=== PATIENT | female | born 1975 | race Caucasian/White ===

== ENCOUNTER 2019-11-12 12:31 | Emergency (ER) | payer BC ==
--- NOTE | 2019-11-12 12:59 | EDM.PDOC ---
ED HPI GENERAL MEDICAL PROBLEM - General Chief Complaint: Chest Pain Stated Complaint: CHEST PAIN Time Seen by Provider: 11/12/19 12:54 Source of Information: Reports: Patient History Limitations: Reports: No Limitations - History of Present Illness INITIAL COMMENTS - FREE TEXT/NARRATIVE: 44-year-old female presents the emergency room chief complaint of chest pain for an hour scaled at 3/10 with pain rating down her left arm. Patient states she threw up with the pain subsided patient is pain-free. Patient has no past medical history of cardiac disease patient does not smoke and she is on no medications. Onset: Today Duration: Hour(s): (2), Resolved Prior to Arrival Location: Reports: Chest Quality: Reports: Pressure Severity: Moderate Improves with: Reports: None, Medication Worsens with: Reports: None Associated Symptoms: Reports: No Other Symptoms chest pain Pain Score (Numeric/FACES): 3 - Related Data Allergies Allergy/AdvReac Type Severity Reaction Status Date / Time No Known Allergies Allergy Verified 11/12/19 12:37 Home Meds: Home Meds . [No Known Home Meds] 11/12/19 [History] Past Medical History - Infectious Disease History Infectious Disease History: Reports: None, Acinetobacter ([facility]), Chicken Pox - Past Surgical History Musculoskeletal Surgical History: Reports: Other (See Below) Other Musculoskeletal Surgeries/Procedures:: knee surgery Social & Family History - Family History Family Medical History: Noncontributory - Tobacco Use Smoking Status *Q: Never Smoker - Recreational Drug Use Recreational Drug Use: No ED ROS GENERAL - Review of Systems Review Of Systems: See Below Constitutional: Reports: No Symptoms HEENT: Reports: No Symptoms Respiratory: Reports: No Symptoms Cardiovascular: Reports: Chest Pain Endocrine: Reports: No Symptoms GI/Abdominal: Reports: No Symptoms : Reports: No Symptoms Musculoskeletal: Reports: No Symptoms Skin: Reports: No Symptoms Neurological: Reports: No Symptoms Psychiatric: Reports: No Symptoms Hematologic/Lymphatic: Reports: No Symptoms Immunologic: Reports: No Symptoms ED EXAM, GENERAL - Physical Exam Exam: See Below Exam Limited By: No Limitations General Appearance: Alert, WD/WN, No Apparent Distress Eye Exam: Bilateral Eye: Normal Fundi, Normal Inspection Ear Exam: Bilateral Ear: Auricle Normal, Canal Normal Nose: Normal Inspection, Normal Mucosa, No Blood Throat/Mouth: Normal Inspection, Normal Lips, Normal Teeth Neck: Normal Inspection Respiratory/Chest: No Respiratory Distress Cardiovascular: Normal Peripheral Pulses, Regular Rate, Rhythm GI/Abdominal: Normal Bowel Sounds, Soft, Non-Tender (Female) Exam: Normal External Exam Rectal (Female) Exam: Deferred Back Exam: Normal Inspection, Full Range of Motion Course - Vital Signs Text/Narrative:: She has been pain-free in the emergency room. Her troponin is elevated 2.08. EKG is normal. I discussed the case with the hospitalist he wants me to send the patient to my not for cardiology . Patient has been accepted by Dr. Panfilo Edouard She is stable for transfer/ground ambulance Last Recorded V/S: Last Vital Signs Temp 97.0 F 11/12/19 12:37 Pulse 100 11/12/19 12:37 Resp 18 11/12/19 12:37 BP 136/69 11/12/19 12:37 Pulse Ox 99 11/12/19 12:37 - Orders/Labs/Meds Orders: Active Orders 24 hr Category Date Time Status EKG Documentation Completion [RC] STAT Care 11/12/19 13:07 Active Labs: Laboratory Tests 11/12/19 11/12/19 11/12/19 Range/Units 12:37 12:37 12:37 WBC 11.37 H (4.0-11.0) K/uL RBC 4.89 (4.30-5.90) M/uL Hgb 14.4 (12.0-16.0) g/dL Hct 45.0 (36.0-46.0) % MCV 92.0 (80.0-98.0) fL MCH 29.4 (27.0-32.0) pg MCHC 32.0 (31.0-37.0) g/dL RDW Std Deviation 42.2 (28.0-62.0) fl RDW Coeff of [place] 13 (11.0-15.0) % Plt Count 263 (150-400) K/uL MPV 11.80 (7.40-12.00) fL Neut % (Auto) 72.0 (48.0-80.0) % Lymph % (Auto) 19.4 (16.0-40.0) % [place] % (Auto) 7.4 (0.0-15.0) % Eos % (Auto) 0.9 (0.0-7.0) % Baso % (Auto) 0.3 (0.0-1.5) % Neut # (Auto) 8.2 H (1.4-5.7) K/uL Lymph # (Auto) 2.2 (0.6-2.4) K/uL [place] # (Auto) 0.8 (0.0-0.8) K/uL Eos # (Auto) 0.1 (0.0-0.7) K/uL Baso # (Auto) 0.0 (0.0-0.1) K/uL Nucleated RBC % 0.0 /100WBC Nucleated RBCs # 0 K/uL Sodium 140 (136-145) mmol/L Potassium 3.8 (3.5-5.1) mmol/L Chloride 101 (98-107) mmol/L Carbon Dioxide 28.0 (21.0-32.0) mmol/L BUN 14 (7.0-18.0) mg/dL Creatinine 0.9 (0.6-1.0) mg/dL Est Cr Clr Drug Dosing 75.45 mL/min Estimated GFR (MDRD) > 60.0 ml/min Glucose 109 H (74-106) mg/dL Calcium 9.6 (8.5-10.1) mg/dL Total Bilirubin 0.5 (0.2-1.0) mg/dL AST 16 (15-37) IU/L ALT 25 (14-63) IU/L Alkaline Phosphatase 56 (46-116) U/L Troponin I 0.082 H* (0.000-0.056) ng/mL Total Protein 7.6 (6.4-8.2) g/dL Albumin 4.0 (3.4-5.0) g/dL Globulin 3.6 (2.6-4.0) g/dL Albumin/Globulin Ratio 1.1 (0.9-1.6) HCG, Qual NEGATIVE (NEG) Meds: Medications Discontinued Medications Generic Name Dose Route Start Last Admin Trade Name Freq PRN Reason Stop Dose Admin Aspirin 324 mg 11/12/19 13:43 Aspirin PO 11/12/19 13:44 ONETIME ONE Departure - Departure Time of Disposition: 14:20 Disposition: DC/Tfer to Acute Hospital 02 Reason for Transfer *Q: Other (Higher level of care) Condition: Good Clinical Impression: Chest pain at rest, Acute coronary syndrome Referrals: PCP,None [Primary Care Provider] - Forms: ED Department Discharge Sepsis Event Note - Evaluation Sepsis Screening Result: No Definite Risk - Focused Exam Vital Signs: Vital Signs Temp Pulse Resp BP Pulse Ox 11/12/19 12:37 97.0 F 100 18 136/69 99 Date Exam was Performed: 11/12/19 Time Exam was Performed: 14:13 - My Orders Last 24 Hours: My Active Orders 11/12/19 13:07 EKG Documentation Completion [RC] STAT - Assessment/Plan Last 24 Hours: My Active Orders 11/12/19 13:07 EKG Documentation Completion [RC] STAT
[2019-11-12 13:32] LABS: BLOOD UREA NITROGEN,BUN 14 mg/dL (7.0-18.0); CHLORIDE,CL 101 mmol/L (98-107); GLUCOSE RANDOM 109 mg/dL (74-106); POTASSIUM,K 3.8 mmol/L (3.5-5.1); SODIUM,NA 140 mmol/L (136-145)
[2019-11-12] MEDS ORDERED: Aspirin 81 MG Tab.Chew PO ONE (13:43)
--- NOTE | 2019-11-12 13:54 | CR ---
Chest: Portable view of the chest was obtained. Comparison: No prior chest x-ray. Heart size and mediastinum are normal. Lungs are clear with no acute parenchymal change. Bony structures are unremarkable. Impression: 1. Nothing acute is seen on portable chest x-ray. Diagnostic code #1 This report was dictated in MDT
== END 2019-11-12 15:44 ==
LOC: MW.ED 12:31
DX: I24.9 Acute ischemic heart disease, unspecified (principal); R79.89 Other specified abnormal findings of blood chemistry
CPT/HCPCS: 71045; 80053; 84484; 84703; 85025; 93005; 99285; A9270; 99283

== ENCOUNTER 2022-07-15 11:09 | Emergency (ER) | payer BC ==
[2022-07-15] MEDS ORDERED: Sodium Chloride 0.9% 20 ML SDV IV PRN (13:08)
[2022-07-15] MEDS ORDERED: Sodium Chloride 0.9% 10 ML Syringe FLUSH PRN (13:08)
[2022-07-15] MEDS ORDERED: Sodium Chloride 0.9% 2.5 ML Syringe FLUSH PRN (13:08)
[2022-07-15] MEDS ORDERED: Sodium Chloride 0.9% 1,000 ML IV ONE (13:09)
[2022-07-15] MEDS ORDERED: Ondansetron 4 MG/2 ML SDV IVPUSH ONE (13:15)
[2022-07-15] MEDS ORDERED: Meclizine 25 MG Tab PO ONE (13:15)
[2022-07-15 13:49] LABS: CARBON DIOXIDE,CO2 27.6 mmol/L (21.0-32.0)
== END 2022-07-15 15:24 | disposition home or self-care (01) ==
LOC: MW.ED 11:09
DX: H81.399 Other peripheral vertigo, unspecified ear (principal)
CPT/HCPCS: 36415; 80053; 85027; 96361; 96374; 99284; A9270; J2405; J3490; J7030